=== PATIENT | female | born 1980 | race Caucasian/White ===

== ENCOUNTER 2018-08-12 15:48 | Emergency (ER) | payer OTHER ==
[2018-08-12 16:31] LABS: URINE BLOOD (Dip) POC Negative (NEGATIVE); URINE GLUCOSE (Dip) POC Negative (NEGATIVE); URINE KETONES (Dip) POC Negative (NEGATIVE); URINE LEUKOCYTE EST (Dip) POC Negative (NEGATIVE); URINE NITRITE (Dip) POC Negative (NEGATIVE); URINE TOTAL PROTEIN POC Negative (NEGATIVE)
[2018-08-12 16:31] LABS: URINE PH (Dip) POC 6.5 (5.0-8.5)
== END 2018-08-12 17:38 | disposition home or self-care (01) ==
LOC: FTE 15:48
DX: N89.8 Other specified noninflammatory disorders of vagina (principal); R10.2 Pelvic and perineal pain; F17.210 Nicotine dependence, cigarettes, uncomplicated
CPT/HCPCS: 81003; 81025; 87210; 99284